=== PATIENT | female | born 1965 | race Caucasian/White ===

== ENCOUNTER 2016-05-08 08:48 | Day surgery (SDC) | payer MEDICAID ==
[~2016-05-08 08:48] MED LIST: Lactated Ringers 1,000 ML IV SCH; Lidocaine 1% 50 ML MDV ONE; ceFAZolin 1 GM in Premix Bag 1 BAG IV SCH
[2016-05-08] MEDS ORDERED: Acetaminophen/HYDROcodone 325-5 MG Tab PO PRN (10:00)
[2016-05-08] MEDS ORDERED: Lidocaine 2% 5 ML SDV ONE (10:16)
[2016-05-08] MEDS ORDERED: Propofol 200 MG/20 ML SDV ONE (10:16)
[2016-05-08] MEDS ORDERED: fentaNYL 250 MCG/5 ML SDV ONE (10:17)
[2016-05-08] MEDS ORDERED: Ketorolac 30 MG/ML SDV ONE (10:17)
[2016-05-08] MEDS ORDERED: Midazolam 1 MG/ML 2 ML SDV ONE (10:17)
[2016-05-08] MEDS ORDERED: Ondansetron 4 MG/2 ML SDV ONE (10:17)
--- NOTE | 2016-05-08 10:18 | PCM.PREANE ---
Preanesthetic Assessment - Anesthesia/Transfusion/Family Hx Anesthesia History: Prior Anesthesia Without Reaction Family History of Anesthesia Reaction: Other (see below) (adopted) Transfusion History: No Prior Transfusion(s) - Review of Systems General: No Symptoms Pulmonary: No Symptoms Cardiovascular: No Symptoms Gastrointestinal: No symptoms Neurological: No Symptoms Other: Reports: None - Physical Assessment NPO Status Date: 05/07/16 NPO Status Time: 23:00 O2 Sat by Pulse Oximetry: 100 Respiratory Rate: 16 Vital Signs: Last Vital Signs Temp 36.2 C 05/08/16 09:30 Pulse 67 05/08/16 09:30 Resp 16 05/08/16 09:30 BP 98/59 L 05/08/16 09:30 Pulse Ox 100 05/08/16 09:30 Height: 1.68 m Weight: 77.111 kg ASA Class: 2 Mental Status: Alert & Oriented x3 Airway Class: Mallampati = 2 Dentition: Reports: Dentures ROM/Head Extension: Full Lungs: Clear to auscultation, Normal respiratory effort Cardiovascular: Regular Rate, Regular Rhythm - Allergies Allergies/Adverse Reactions: Allergies Allergy/AdvReac Type Severity Reaction Status Date / Time No Known Allergies Allergy Verified 05/03/16 14:16 - Anesthesia Plan Pre-Op Medication Ordered: None Med Last Dose Date: 05/08/16 Med Last Dose Time: 08:00 (gabipenum and valium) - Acknowledgements Anesthesia Type Planned: General Anesthesia Pt an Appropriate Candidate for the Planned Anesthesia: Yes Alternatives and Risks of Anesthesia Discussed w Pt/Guardian: Yes Pt/Guardian Understands and Agrees with Anesthesia Plan: Yes PreAnesthesia Questionnaire HEENT History: Reports: Allergic rhinitis Other HEENT History: wears glasses/contacts, has upper and lower dentures Cardiovascular History: Reports: None Respiratory History: Reports: None Gastrointestinal History: Reports: GERD Genitourinary History: Reports: Urinary incontinence TAR MAN History: Reports: None Musculoskeletal History: Reports: Arthritis, Back pain, chronic Neurological History: Reports: Migraines, Other (see below) Other Neuro History: HX of Sciatic nerve pain Psychiatric History: Reports: Bipolar, PTSD Endocrine/Metabolic History: Reports: Obesity/BMI 30+ Hematologic History: Reports: None Immunologic History: Reports: None Oncologic (Cancer) History: Reports: None Dermatologic History: Reports: None - Past Surgical History Head Surgeries/Procedures: Reports: None Cardiovascular Surgical History: Reports: None GI Surgical History: Reports: Cholecystectomy Female Surgical History: Reports: Hysterectomy, Tubal ligation, Other (see below) Other Female Surgeries/Procedures: bladder suspension Endocrine Surgical History: Reports: None Neurological Surgical History: Reports: None Musculoskeletal Surgical History: Reports: Carpal tunnel, Other (see below) Other Musculoskeletal Surgeries/Procedures:: release of trigger finger, bilateral...... bilateral CTR Oncologic Surgical History: Reports: None Dermatological Surgical History: Reports: None - SUBSTANCE USE Smoking Status *Q: Current Every Day Smoker Tobacco Use Within Last Twelve Months: Cigarettes Second Hand Smoke Exposure: Yes Days Per Week of Alcohol Use: 0 Recreational Drug Use History: No - HOME MEDS Home Medications: Home Meds Diazepam [Valium] 1 tab PO TID PRN 05/03/16 [History] Furosemide [Lasix] 1 tab PO DAILY 05/03/16 [History] Gabapentin [Neurontin] 1 cap PO BID 05/03/16 [History] Oxybutynin Chloride [Ditropan Xl] 1 cap PO BID 05/03/16 [History] Pantoprazole [Protonix] 1 tab PO DAILY 05/03/16 [History] Sucralfate [Carafate] 1 tab PO QID 05/03/16 [History] Topiramate [Topamax] 2 tab PO BID 05/03/16 [History] oxyCODONE HCl/Acetaminophen [oxyCODONE-Acetaminophen 5-325] 1 - 2 tab PO Q4H PRN 05/03/16 [History] traZODone HCl [Trazodone HCl] 1 tab PO DAILY 05/03/16 [History] traZODone HCl [Trazodone HCl] 150 mg PO BEDTIME 05/03/16 [History] - CURRENT (IN HOUSE) MEDS Current Meds: Current Medications Acetaminophen/Hydrocodone Bitart ([place]bon 325-5 Mg) 1 - 2 tab PO Q4H PRN PRN Reason: Pain Lactated Ringer's (Ringers, Lactated) 1,000 mls @ 100 mls/hr IV ASDIRECTED JAMAAL Last Admin: 05/08/16 09:32 Dose: 100 mls/hr Cefazolin Sodium/Dextrose 1 gm (/ Premix) 50 mls @ 100 mls/hr IV ONCALL JAMAAL Discontinued Medications Lidocaine HCl (Xylocaine 1%) Confirm Administered Dose 50 ml .ROUTE .STK-MED ONE Stop: 05/08/16 07:39 Preanesthetic Assessment - ANESTHESIA/TRANSFUSION/FAMILY HX Anesthesia/Transfusion History: No Prior Transfusion(s), Prior Anesthesia Family History of Anesthesia Reaction: No - PHYSICAL ASSESSMENT O2 Sat by Pulse Oximetry: 100 RR: 16 Vital Signs: Last Vital Signs Temp 36.2 C 05/08/16 09:30 Pulse 67 05/08/16 09:30 Resp 16 05/08/16 09:30 BP 98/59 L 05/08/16 09:30 Pulse Ox 100 05/08/16 09:30 Height: 1.68 m Weight: 77.111 kg NPO Status Date: 05/07/16 NPO Status Time: 23:00 - ALLERGIES Allergies/Adverse Reactions: Allergies Allergy/AdvReac Type Severity Reaction Status Date / Time No Known Allergies Allergy Verified 05/03/16 14:16
--- NOTE | 2016-05-08 12:48 | PCM.OPNOTE ---
- General Post-Op/Procedure Note Date of Surgery/Procedure: 05/08/16 Operative Procedure(s): R knee scope with PMM Post-Op Diagnosis: DJD R knee. R knee medial meniscus tear Anesthesia Technique: General ET tube Primary Surgeon: Catie Dhillon Auditor Appraiser: Ana Denis Auditor Appraiser: Ruben Lee in mLs: 5 Condition: Good Free Text/Narrative:: tt=22 min #[id number]
[2016-05-08] MEDS: fentaNYL 100 MCG/2 ML SDV IVPUSH PRN ×2 (13:27→13:33)
--- NOTE | 2016-05-08 13:44 | PCM.POSTAN ---
POST ANESTHESIA ASSESSMENT - MENTAL STATUS Mental Status: alert, oriented - RESPIRATORY Respiratory Status: respiratory rate WNL, airway patent, O2 saturation stable - CARDIOVASCULAR CV Status: pulse rate WNL, blood pressure stable - GASTROINTESTINAL GI Status: no symptoms - PAIN Pain Score: 0 (s/p narcotic dosing) - POST OP HYDRATION Hydration Status: adequate & stable - OBSERVATIONS Free Text/Narrative:: To Phase II.
--- NOTE | 2016-05-08 13:46 | OR ---
SURGEON: Catie Dhillon MD DATE OF PROCEDURE: 05/08/2016 PREOPERATIVE DIAGNOSES: 1. Degenerative joint disease, right knee. 2. Right knee medial meniscus tear. POSTOPERATIVE DIAGNOSES: 1. Degenerative joint disease, right knee. 2. Right knee medial meniscus tear. PROCEDURES: Right knee arthroscopy with partial medial meniscectomy with chondroplasty of the medial femoral condyle. ASSISTANTS: 1. Ana Denis MD, PGY-2. 2. Ruben Lee PA-C. ANESTHESIA: General. ESTIMATED BLOOD LOSS: 5 mL. TOURNIQUET TIME: 22 minutes. COMPLICATIONS: None. DVT PROPHYLAXIS: Not indicated. IMPLANTS USED: None. BRIEF HISTORY: Lorenza is a 51-year-old female, who has had complaint of progressive right knee pain. She had failed conservative treatment. Due to her lack of response to conservative treatment, I did recommend surgical intervention. The risks and goals of procedure were discussed with the patient and were documented preoperatively. She agreed to proceed. DESCRIPTION OF PROCEDURE: The patient was properly identified and brought to the operating room. She was transferred from the OR cart and placed on the operating table in supine position. General anesthesia was administered. After adequate anesthesia was obtained, a well-padded tourniquet was applied to the right lower extremity. The right lower extremity was then prepped in standard fashion using ChloraPrep solution. It was then sterilely draped. A time-out was performed to ensure correct site and procedure. Preoperative antibiotics were given. The surgical site had been marked preoperatively. An Esmarch was used to exsanguinate the right lower extremity. The tourniquet was inflated to 250 mmHg. A lateral portal arthrotomy was established. Blunt trocar and cannula were introduced into the suprapatellar space. Camera, inflow, and outflow were assembled. No significant synovitis was noted. The patellofemoral joint was then visualized. She had minor degenerative changes diffusely. The patella appeared to track centrally. I then extended down the lateral and medial gutter. No loose bodies were identified. I then entered the medial compartment. A medial portal arthrotomy was established. A blunt probe was inserted. She had extensive degenerative changes along the medial femoral condyle diffusely. The meniscus was examined. There was found to be a tear of the posterior horn of the meniscus. Using a combination of biters and shaver, this was resected back to a stable remnant. It was again probed and found to be stable. The joint surfaces were then inspected. She had diffuse grade 3 chondromalacia along the medial tibial plateau as well as the medial femoral condyle. The shaver was used to perform a chondroplasty as there was quite a bit of loose cartilaginous flaps present. I then entered the notch. Both the ACL and PCL were visualized and probed and found to be stable. I finally entered the lateral compartment. Again noted was degenerative changes of the lateral tibial plateau consistent with grade 2 to grade 3 findings. The lateral femoral condyle showed minor softening consistent with grade 1 chondromalacia. The meniscus was probed. Minor degenerative fraying was noted centrally. No discrete tear was noted, then meniscus was found to be stable. The patellofemoral joint was again inspected. No further degenerative changes were noted with probing. The instruments were then removed from the knee. The portal sites were closed with 3-0 nylon. Lidocaine 1% was injected along the portal tracts. Xeroform gauze was placed over the wound and a bulky dressing was applied. The tourniquet was then deflated. She was awakened from her anesthetic and transferred back to the operating room cart. She was brought to recovery room in stable condition. All needle and sponge counts were correct. ANJANA / ISABEL /[id number]
--- NOTE | 2016-05-08 14:26 | PCM48HPAN ---
Post Anesthesia Note - EVALUATION WITHIN 48HRS OF ANESTHETIC Vital Signs in Normal Range: Yes Patient Participated in Evaluation: Yes Respiratory Function Stable: Yes Airway Patent: Yes Cardiovascular Function Stable: Yes Hydration Status Stable: Yes Pain Control Satisfactory: Yes Nausea and Vomiting Control Satisfactory: Yes Mental Status Recovered: Yes - COMMENTS/OBSERVATIONS Free Text/Narrative:: Soon to be going home!
[2016-05-08 15:45] VITALS: BP 102/62
== END 2016-05-08 15:00 | disposition home or self-care (01) ==
LOC: MW.SDS 08:48
PROVIDERS: ATTEND Orthopaedic Surgery
PROC: 0SBC4ZZ Excision of Right Knee Joint, Percutaneous Endoscopic Approach (ICD-10-PCS; principal; 2016-05-08)
DX: S83.241A Other tear of medial meniscus, current injury, right knee, initial encounter (principal); M94.261 Chondromalacia, right knee; M17.11 Unilateral primary osteoarthritis, right knee; M65.861 Other synovitis and tenosynovitis, right lower leg; K21.9 Gastro-esophageal reflux disease without esophagitis; F41.9 Anxiety disorder, unspecified; G89.29 Other chronic pain; M54.5 Low back pain; M54.2 Cervicalgia; M54.10 Radiculopathy, site unspecified; J45.909 Unspecified asthma, uncomplicated; J44.9 Chronic obstructive pulmonary disease, unspecified; F31.9 Bipolar disorder, unspecified; I10 Essential (primary) hypertension; K58.9 Irritable bowel syndrome, unspecified; F17.210 Nicotine dependence, cigarettes, uncomplicated; Z86.19 Personal history of other infectious and parasitic diseases; Z98.51 Tubal ligation status; Z90.49 Acquired absence of other specified parts of digestive tract; Z90.710 Acquired absence of both cervix and uterus; Z98.890 Other specified postprocedural states; Z79.899 Other long term (current) drug therapy
CPT/HCPCS: 29881; 36415; 84132; 88304; A9270; J1885; J2250; J2405; J3010; J7120; 01400; J2704

== ENCOUNTER 2020-06-22 06:32 | Day surgery (SDC) | payer MEDICARE ==
[2020-06-22] MEDS ORDERED: Fluorescein 5 ML Vial ONE (07:21)
[2020-06-22] MEDS ORDERED: Propofol 200 MG/20 ML SDV ONE (07:28)
[2020-06-22] MEDS ORDERED: Lidocaine 2% 5 ML SDV ONE (07:28)
[2020-06-22] MEDS ORDERED: Dexamethasone 4 MG/ML 5 ML MDV ONE (07:28)
[2020-06-22] MEDS ORDERED: Ondansetron 4 MG/2 ML SDV ONE (07:28)
[2020-06-22] MEDS ORDERED: Midazolam 1 MG/ML 2 ML SDV ONE (07:28)
[2020-06-22] MEDS ORDERED: fentaNYL 250 MCG/5 ML SDV ONE (07:28)
[2020-06-22] MEDS ORDERED: Furosemide 40 MG/4 ML VIAL ONE (07:39)
--- NOTE | 2020-06-22 07:41 | PCM.PREANE ---
Preanesthetic Assessment - Anesthesia/Transfusion/Family Hx Anesthesia History: Prior Anesthesia Without Reaction Family History of Anesthesia Reaction: No Transfusion History: Prior Transfusion Without Reaction - Review of Systems General: No Symptoms Pulmonary: No Symptoms Cardiovascular: No Symptoms Gastrointestinal: No Symptoms Neurological: No Symptoms Other: Reports: None - Physical Assessment NPO Status Date: 06/22/20 NPO Status Time: 00:01 Vital Signs: Last Vital Signs Temp 97.5 F 06/22/20 06:52 Pulse 80 06/22/20 06:52 Resp 16 06/22/20 06:52 BP 146/80 H 06/22/20 06:52 Pulse Ox 97 06/22/20 06:52 Height: 5 ft 6 in Weight: 234 lb ASA Class: 2 Mental Status: Alert & Oriented x3 Airway Class: Mallampati = 2 Dentition: Reports: Normal Dentition ROM/Head Extension: Limited/Partial Lungs: Clear to Auscultation, Normal Respiratory Effort Cardiovascular: Regular Rate, Regular Rhythm - Allergies Allergies/Adverse Reactions: Allergies Allergy/AdvReac Type Severity Reaction Status Date / Time No Known Allergies Allergy Verified 06/22/20 06:57 - Anesthesia Plan Pre-Op Medication Ordered: None - Acknowledgements Anesthesia Type Planned: General Anesthesia Pt an Appropriate Candidate for the Planned Anesthesia: Yes Alternatives and Risks of Anesthesia Discussed w Pt/Guardian: Yes Pt/Guardian Understands and Agrees with Anesthesia Plan: Yes Additional Comments: npo after mn asthma copd prn inhalers hayfever depression anxiety bipolar controlled IBS headaches fibromyalgia no cv problems tob 1 ppd etoh rare edwina obesity bmi 38 PreAnesthesia Questionnaire HEENT History: Reports: Allergic Rhinitis Other HEENT History: wears glasses/contacts, has upper and lower dentures Cardiovascular History: Reports: None Respiratory History: Reports: Asthma, COPD Gastrointestinal History: Reports: GERD Other Gastrointestinal History: gastric ulcer Genitourinary History: Reports: Urinary Incontinence KNOCKOUT MAN History: Reports: Musculoskeletal History: Reports: Arthritis, Back Pain, Chronic, Fibromyalgia Neurological History: Reports: Migraines, Other (See Below) Other Neuro History: HX of Sciatic nerve pain Psychiatric History: Reports: Anxiety, Bipolar, PTSD Endocrine/Metabolic History: Reports: Obesity/BMI 30+ Hematologic History: Reports: Anemia, Blood Transfusion(s) Immunologic History: Reports: None Oncologic (Cancer) History: Reports: None Dermatologic History: Reports: None - Past Surgical History Head Surgeries/Procedures: Reports: None HEENT Surgical History: Reports: None Cardiovascular Surgical History: Reports: None Respiratory Surgical History: Reports: None GI Surgical History: Reports: Cholecystectomy, Colonoscopy, EGD Female Surgical History: Reports: Hysterectomy, Tubal Ligation, Other (See Below) Other Female Surgeries/Procedures: bladder suspension Endocrine Surgical History: Reports: None Neurological Surgical History: Reports: Lumbar Spine Musculoskeletal Surgical History: Reports: Arthroscopic Knee, Carpal Tunnel, Other (See Below) Other Musculoskeletal Surgeries/Procedures:: bilateral CTR, right knee arthroscopy Oncologic Surgical History: Reports: None Dermatological Surgical History: Reports: None - SUBSTANCE USE Tobacco Use Status *Q: Current Every Day Tobacco User Tobacco Use Within Last Twelve Months: Cigarettes - HOME MEDS Home Medications: Home Meds Oxybutynin Chloride [Ditropan Xl] 10 mg PO BID 05/03/16 [History] Albuterol Sulfate [Proair Hfa] 1 - 2 puff INH ASDIRECTED PRN 06/16/20 [History] Fesoterodine Fumarate [Toviaz] 8 mg PO DAILY 06/16/20 [History] Sucralfate 1 gm PO QID 06/16/20 [History] - CURRENT (IN HOUSE) MEDS Current Meds: Current Medications Discontinued Medications Dexamethasone (Dexamethasone 4 Mg/Ml 5 Ml Mdv) Confirm Administered Dose 20 mg .ROUTE .STK-MED ONE Stop: 06/22/20 07:29 Fentanyl (Fentanyl 250 Mcg/5 Ml Sdv) Confirm Administered Dose 250 mcg .ROUTE .STK-MED ONE Stop: 06/22/20 07:29 Fluorescein Sodium (Fluorescein 5 Ml Vial) Confirm Administered Dose 5 ml .ROUTE .STK-MED ONE Stop: 06/22/20 07:22 Lidocaine (Lidocaine 2% 5 Ml Sdv) Confirm Administered Dose 5 ml .ROUTE .STK-MED ONE Stop: 06/22/20 07:29 Midazolam HCl (Midazolam 1 Mg/Ml 2 Ml Sdv) Confirm Administered Dose 2 mg .ROUTE .STK-MED ONE Stop: 06/22/20 07:29 Ondansetron HCl (Ondansetron 4 Mg/2 Ml Sdv) Confirm Administered Dose 4 mg .ROUTE .STK-MED ONE Stop: 06/22/20 07:29 Propofol (Propofol 200 Mg/20 Ml Sdv) Confirm Administered Dose 400 mg .ROUTE .STK-MED ONE Stop: 06/22/20 07:29
[2020-06-22] MEDS ORDERED: Famotidine 20 MG/2 ML SDV ONE (07:45)
[2020-06-22] MEDS ORDERED: diphenhydrAMINE 50 MG/ML SDV ONE (07:50)
[2020-06-22] MEDS ORDERED: Scopolamine 1.5 MG Transdermal Patch ONE (07:50)
[2020-06-22] MEDS ORDERED: Neomycin/Polymyxin B Bladder Irrigation 1 ML Amp ONE (07:52)
[2020-06-22] MEDS ORDERED: Ketorolac 30 MG/ML SDV ONE (08:58)
--- NOTE | 2020-06-22 09:15 | PCM.OPNOTE ---
- General Post-Op/Procedure Note Date of Surgery/Procedure: 06/22/20 Operative Procedure(s): TVT,cysto. Pre Op Diagnosis: GARETH Post-Op Diagnosis: Same Anesthesia Technique: General LMA Primary Surgeon: Mode LOUISE in mLs: 25 Complications: None Condition: Good
[2020-06-22] MEDS ORDERED: fentaNYL 100 MCG/2 ML SDV IVPUSH PRN (09:19)
--- NOTE | 2020-06-22 09:43 | PCM.POSTAN ---
POST ANESTHESIA ASSESSMENT - MENTAL STATUS Mental Status: Alert (no anesthetic problems), Oriented - VITAL SIGNS Vital Signs: Last Vital Signs Temp 98.1 F 06/22/20 09:14 Pulse 75 06/22/20 09:39 Resp 14 06/22/20 09:39 BP 125/61 06/22/20 09:39 Pulse Ox 92 L 06/22/20 09:39 - RESPIRATORY Respiratory Status: Respiratory Rate WNL, Airway Patent, O2 Saturation Stable - CARDIOVASCULAR CV Status: Pulse Rate WNL, Blood Pressure Stable - GASTROINTESTINAL GI Status: No Symptoms - POST OP HYDRATION Hydration Status: Adequate & Stable
--- NOTE | 2020-06-22 10:11 | PCM48HPAN ---
Post Anesthesia Note - EVALUATION WITHIN 48HRS OF ANESTHETIC Vital Signs in Normal Range: Yes Patient Participated in Evaluation: Yes Respiratory Function Stable: Yes Airway Patent: Yes Cardiovascular Function Stable: Yes Hydration Status Stable: Yes Pain Control Satisfactory: Yes Nausea and Vomiting Control Satisfactory: Yes Mental Status Recovered: Yes Vital Signs: Last Vital Signs Temp 97.2 F 06/22/20 09:45 Pulse 78 06/22/20 10:00 Resp 16 06/22/20 10:00 BP 107/70 06/22/20 10:00 Pulse Ox 97 06/22/20 10:00
[2020-06-22 10:21] VITALS: BP 112/72; PULSE 72
--- NOTE | 2020-06-22 14:07 | OR ---
SURGEON: Mode Cobian MD DATE OF PROCEDURE: 06/22/2020 PREOPERATIVE DIAGNOSIS: Stress incontinence. POSTOPERATIVE DIAGNOSIS: Stress incontinence. OPERATION PERFORMED: Tension-free vaginal tape, cystoscopy. PRIMARY SURGEON: Mode Cobian MD PAYROLL ANALYST: SARA alba. ANESTHESIA: General LMA. ESTIMATED BLOOD LOSS: 25 mL. COMPLICATIONS: None. INDICATION FOR SURGERY: [place] refer to the admit note. PROCEDURE IN DETAIL: The patient was brought to the OR, properly identified, and after adequate level of anesthesia, the patient was placed in lithotomy position, prepped and draped in sterile fashion as usual. A straight catheter was used to empty the bladder and the area of the anterior vaginal wall beneath the urethra infiltrated with copious amount of normal saline. Using electrocautery, a midline incision from beneath the mid urethra was done in the vaginal wall and dissected laterally with the Metzenbaum in a tunneling fashion, making a space for the Solyx TVT. Once that was finished, then the Solyx TVT was placed into place with due amount of tension to elevate the urethrovesical angle and once the Solyx TVT was into place, then the vaginal cuff was closed with 2-0 Vicryl in continuous interlocking for hemostasis. After that, cystoscopy was performed. The bladder was intact and satisfied with these findings, the procedure ended. The instrument and sponge count was correct. The patient tolerated the procedure very well, went to recovery room in stable general condition. ALTA / ISABEL /[id number]
== END 2020-06-22 10:27 | disposition home or self-care (01) ==
LOC: MW.SDS 06:32
PROVIDERS: ATTEND Obstetrics & Gynecology
DX: N39.3 Stress incontinence (female) (male) (principal); F17.210 Nicotine dependence, cigarettes, uncomplicated; J44.9 Chronic obstructive pulmonary disease, unspecified; G43.909 Migraine, unspecified, not intractable, without status migrainosus; E66.9 Obesity, unspecified; M79.7 Fibromyalgia; Z68.38 Body mass index [BMI] 38.0-38.9, adult; Z79.899 Other long term (current) drug therapy; Z98.890 Other specified postprocedural states
CPT/HCPCS: 57288; A9270; C1771; J1100; J1200; J1885; J2250; J2405; J2704; J3010; J3490; 00910; J1940